=== PATIENT | male | born 1985 | race Caucasian/White ===

== ENCOUNTER 2017-10-02 12:59 | Emergency (ER) | payer BC, MEDICAID ==
[~2017-10-02] VITALS: Ht 177.8 cm; Wt 70.3 kg
[~2017-10-02 12:59] MED LIST: BENADRYL 25MG C25 MG PO; KEFLEX 500MG.500 MG PO; MOTRIN600 MG PO; PREDNISONE50 MG PO; TESSALON PERLE200 MG PO; ZANTAC 300300 MG PO; ZITHROMAX Z-PA250 M1 PO
--- OUTSIDE RECORDS SUMMARY | 2017-10-02 13:13 | External Medical Summary Rpt | CCD ---
Demographics Preferred Language Slovenian Marital Status Unknown Zoroastrianism Affiliation Unknown Race Unknown Ethnic Group Unknown Author Author , NAPOLEON IBARRA Address Unknown Phone [email or web address] Immunization Name Date Rout CVX Reac Dose Comm Prov Is Faci e tion ent ider Refu lity Give sed n MMR 08-2 3 999 Hist H149 No H149 2-19 oric 97 al Info rmat ion - Sour ce Unsp ecif ied
--- OUTSIDE RECORDS SUMMARY | 2017-10-02 13:13 | External Medical Summary Rpt | CCD ---
Author Author [employer] Organization [employer] Address Unknown Phone Unavailable Purpose Continuity of Care Document - through 2016
--- OUTSIDE RECORDS SUMMARY | 2017-10-02 13:13 | External Medical Summary Rpt ---
Author Author FR[facility] Reese, [employer] Organization [employer] Address Unknown Phone Unavailable
--- OUTSIDE RECORDS SUMMARY | 2017-10-02 13:13 | External Medical Summary Rpt | CCD ---
Author Author , NAPOLEON IBARRA Address Unknown Phone [email or web address] Purpose Continuity of Care Document - through 2016
--- OUTSIDE RECORDS SUMMARY | 2017-10-02 13:13 | External Medical Summary Rpt | CCD ---
Author Author , NAPOLEON IBARRA Address Unknown Phone [email or web address] Purpose Continuity of Care Document - through 2016
--- OUTSIDE RECORDS SUMMARY | 2017-10-02 13:13 | External Medical Summary Rpt | CCD ---
Demographics Preferred Language Qatari Marital Status Unknown Tenriism Affiliation Unknown Race Unknown Ethnic Group Unknown Author Author , NAPOLEON IBARRA Address Unknown Phone [email or web address] Immunization Name Date Rout CVX Reac Dose Comm Prov Is Faci e tion ent ider Refu lity Give sed n MMR 08-2 3 999 Hist H149 No H149 2-19 oric 97 al Info rmat ion - Sour ce Unsp ecif ied
--- NOTE | 2017-10-02 14:37 | Urgent Treatment Center Report ---
History of Present Issue Date/Time Seen by Provider 10/02/17 1432 Visit Reason yPt arrived:Walked Presenting Problem:CYST ON FOREHEAD SINCE MAY, DENIES PAIN OR DRAINAGE, WANTS IT REMOVED Location if Accident: Onset of symptoms date/time:/ or onset unknown for:MEDICAL HX UNKNOWN Have you (or family members/close friends) recently traveled outside the [place]? N If Yes, where/when: Have you had exposure to infectious disease within the past month? TB? Other? Specify: Patient is hearing impaired however able to read lips and hear some sounds State that he noticed raised area on right side of forehead about 3-4 months ago and it has never went away and thinks it may be a cyst. State that it moves around and he is wanting it removed ALLERGIES Coded Allergies: NO KNOWN ALLERGIES (10/02/17) Home Medications Active Scripts Prednisone (Prednisone 50MG) 50 MG PO DAILY #5 Prov: 06/18/11 Ranitidine Hcl (Zantac 300MG) 300 MG PO DAILY #5 Prov: 06/18/11 Diphenhydramine Hcl (Benadryl 25MG CAP) 1-2 CAP PO Q6H PRN #20 Prov: 06/18/11 History Medical History General Angina: No CO: No Hypertension? No Hyperlipidemia? No COPD? No Asthma? No CVA? No Seizures? No Diabetes? No GB Disease: No MRSA? No TB? No Cancer? No Immunization HX DT/Tetanus 1-4 YRS Surgical Hx Previous Surgery?N Social History Smoking Hx Smoker: Current Every Day Smoker Tobacco: Yes Type Cigarettes Packs/day < 1 Pack Alcohol Alcohol: No Review of Systems All Other Systems Reviewed and Negative Physical Exam Vital Signs Vital Signs Date Time Temp Pulse Resp B/P Pulse O2 O2 Flow FiO2 Ox Delivery Rate 10/02 1411 98.6 88 16 156/98 100 General Appearance normal appearance, WD/WN, no apparent distress Respiratory Status Yes: trachea midline, chest symmetrical, non tender chest. No: respiratory distress. Cardiovascular normal exam, regular rate/rhythm, no peripheral edema Neurologic alert, normal exam, oriented x 3 Comments Called Surgical clinic and appointment made for patient for evaluation for removal. Appointment MondayOct 09 at 930am Medical Decision Making LABS/Meds/Orders Pt receiving controlled substance in ED? No Departure Departure Time of Disposition 1438 Disposition DC Home or Self Care(routine) Clinical Impression Primary Impression: Skin problem Condition STABLE Referrals Mei MILLAN,Tim KAY MD,CINDY Pugh Patient Instructions Epidermal Cyst Additional Instructions Follow up in Surgical clinic on MondayOct 09 at 930 am for your appointment Return if needed Follow up with family doctor Discharge Counseling Counseled pt/family regarding diagnosis, follow up needs at [phone]
[2017-10-02 14:49] VITALS: BP 142/88
== END 2017-10-02 14:50 | disposition home or self-care (01) ==
LOC: UTC 12:59
DX: L72.8 Other follicular cysts of the skin and subcutaneous tissue (principal); H91.90 Unspecified hearing loss, unspecified ear; F17.210 Nicotine dependence, cigarettes, uncomplicated

== ENCOUNTER → 2017-10-09 | Outpatient (CLI) | payer MEDICAID ==
[2017-10-09 11:31] LABS: LYMPH # 2.5 K/mm3 (0.7-4.5); LYMPH % 29.3 % (10-50)
[2017-10-09 13:15] LABS: BUN 5 mg/dL (7-18)
[2017-10-09 13:16] LABS: GFR (ESTIMATED) 98 ML/MIN (>60)
== END ==
LOC: LAB 11:03
PROVIDERS: Surgery
DX: L72.8 Other follicular cysts of the skin and subcutaneous tissue (principal); Z01.812 Encounter for preprocedural laboratory examination

== ENCOUNTER 2017-10-25 08:23 | Day surgery (SDC) | payer BC, MEDICAID ==
[~2017-10-25] VITALS: Ht 180.3 cm; Wt 70.3 kg
--- NOTE | 2017-10-25 10:32 | Operative Note ---
Surgeon/Diagnoses Surgeon/[employer] Intercept Controller(s) Date of procedure: 10/25/17 Surgeon: Tim Hurley Diagnoses Pre-op diagnosis: Facial cyst Post-op diagnosis Same Procedure Procedure Procedure: Excision of cyst from forehead (excisional length 2.0 cm Indications: ERNESTO COVINGTON II is a 32 year-old Male with a history of cyst on his forehead. Findings: Consistent with sebaceous cyst. Procedure Description: Consent was obtained and patient was taken to the operating room. He was positioned in a supine position. Adequate anesthesia sedation was achieved. The area was prepped and draped. Skin was marked with a skin marker for planned elliptical incision excising the skin punctum. Full-thickness skin incision was made and dissection was carried down to cyst wall. There was underlying lesion consistent with well encapsulated sebaceous cyst. This was excised intact with the overlying skin ellipse. It was sent off as a specimen. Hemostasis was achieved with electrocautery. Deep dermal tissues were closed with interrupted 3 -0 Vicryl sutures. Skin was closed with Dermabond. Clean dry sterile dressing was applied. EBL (ml): 5 Anesthesia: local Mac Specimens: Sebaceous cyst Disposition Disposition: To PACU at 1031
[2017-10-25 14:16] VITALS: BP 159/94
== END 2017-10-25 11:30 | disposition home or self-care (01) ==
LOC: SDC 08:23
PROVIDERS: Surgery
PROC: 0HB1XZZ Excision of Face Skin, External Approach (ICD-10-PCS; principal; 2017-10-25 09:30)
DX: L72.3 Sebaceous cyst (principal)